=== PATIENT | female | born 1970 | race Caucasian/White ===

== ENCOUNTER 2020-07-20 07:44 | Outpatient (REF) | payer BC, SELFPAY | END 2020-07-20 07:45 | disposition home or self-care (01) | LOC: HO.WFDLDS 07:44 | PROVIDERS: Visit Provider Internal Medicine | DX: Z20.822 Contact with and (suspected) exposure to COVID-19 (principal) | CPT/HCPCS: 36415; C9803; U0003 ==

== ENCOUNTER 2023-12-25 10:31 | Outpatient (AMB) | payer BC, SELFPAY ==
[2023-12-25 10:39] VITALS: BP 144/94; PULSE 65; RESP 15; TEMP 36.9; O2SAT 97; BMI 37.7
--- NOTE | 2023-12-25 10:39 | AM.OFFWIN_ITS ---
Intake Vital Signs 12/25/23 10:39 Height 5 ft 11 in Weight 270 lb 4 oz BMI 37.7 BP 144/94 H Blood Pressure Location Rt brachial Position Sitting Respiration 15 Pulse 65 Pulse Source Pulse Oximeter Temp 98.5 F Temp Source Temporal Artery Scan Pulse Oximetry (%) 97 Oxygen Delivery Method Room Air Intake Visit Reasons: est/ sinus pain Patient Tobacco Use Status: Never used Tobacco [employer] Instructor Required: No Accompanied by: Self / Same As Patient Allergies Seasonal Allergies Allergy (Intermediate, Verified 12/25/23 10:50) sinus pressure Medication List - Last Reconciled 12/25/23 by Makeda Jean, INFORMATION ASSURANCE MANAGER- dupilumab (Dupixent) mg subcut lisinopril 20 mg PO DAILY Do you need a note to return to daycare/school/sports/work: No HPI HPI Comments History of Present Illness Details Here today concern for sinus infection sx present for 3 weeks lots of nasal congestion, mucous, PND, pressure in forehead Home test COVID negative Treated for allergies w/o relief Using other OTC meds w/o relief Awake alert NAD Sclera and conjunctiva clear bilat Nares mucoid d/c bilat , turbinates pale and edematous , + pansinus tenderness with palpation bilat TM intact and clear bilat MMM, pharynx WNL RRR LS CTAB, mild cough noted during exam PFSH Social History Patient Tobacco Use Status: Never used Tobacco Review of Systems Const All systems reviewed & are unremarkable except as noted in HPI and below Physical Exam Vital Signs: Last Vital Signs Temp 98.5 F 12/25/23 10:39 Pulse 65 12/25/23 10:39 Resp 15 12/25/23 10:39 BP 144/94 H 12/25/23 10:39 Pulse Ox 97 12/25/23 10:39 Oxygen Delivery Method Room Air 12/25/23 10:39 BMI result Body Mass Index 37.7 Assessment & Plan Assessment & Plan (1) Acute bacterial sinusitis: Code(s): J01.90 - Acute sinusitis, unspecified; B96.89 - Other specified bacterial agents as the cause of diseases classified elsewhere Plan: . Medications: New amoxicillin-pot clavulanate 875-125 mg 1 tab PO BID 7 days 14 tabs 0RF fluticasone propionate 50 mcg/actuation administer into each nostril 1 spray intranasal BID 16 grams 0RF Patient Instructions: What Is It? Sinuses are air-filled spaces behind the bones of the upper face: between the eyes and behind the forehead, nose and cheeks. The lining of the sinuses are made up of cells with tiny hairs on their surfaces called cilia. Other cells in the lining produce mucus. The mucus traps germs and pollutants and the cilia push the mucus out through narrow sinus openings into the nose. When the sinuses become inflamed or infected, the mucus thickens and clogs the openings to one or more sinuses. Fluid builds up inside the sinuses causing increased pressure. Also bacteria can become trapped, multiply and infect the lining. This is sinusitis. Prevention There are some measures you can take to decrease your risk of developing sinusitis. If you smoke cigarettes, you should quit. The smoke can irritate nasal passageways and increase the likelihood of infection. Nasal allergies can trigger sinus infections, too. By identifying the allergen (the substance causing the allergic reaction) and avoiding it, you can help prevent sinusitis. If you have congestion from a cold or allergies, the following may help to reduce the risk of developing sinusitis: Drink lots of water. This thins nasal secretions and keeps mucous membranes moist. Use steam to soothe nasal passages. Breathe deeply while standing in a hot shower, or inhale the vapor from a basin filled with hot water while holding a towel over your head. Avoid blowing your nose with great force, which can push bacteria into the sinuses. Some doctors advise periodic home nasal washings to clear secretions. This may help prevent, and also treat, sinus infections. Treatment Many sinus infections improve without treatment. However, several medications may speed recovery and reduce the chance that an infection will become chronic. Decongestants - Congestion often triggers sinus infections, and decongestants can open the sinuses and allow them to drain. Several are available: Pseudoephedrine (Sudafed) is available without prescription, alone or in combination with other medications in multi-symptom cold and sinus remedies. Pseudoephedrine can cause insomnia, racing pulse and jitteriness. Do not use if you have high blood pressure or a heart condition. Phenylephrine (such as Sudafed PE) is an alternative auwa-gmn-auywbyo oral decongestant. If you take products containing oral phenylephrine, check with the pharmacist to be certain there is no interaction with other medications you take. Oxymetazoline (Afrin, Dristan and others) and phenylephrine (Timur-Synephrine and others) are found in nasal sprays. They are effective and may be less likely to cause the side effects seen with pseudoephedrine. However, using a nasal decongestant for more than three days can cause worse symptoms when you stop the medication. This is called the rebound effect. Antihistamines - These medications help to relieve the symptoms of nasal allergies that lead to inflammation and infections. However, some doctors advise against using antihistamines during a sinus infection because they can cause excessive drying and slow the drainage process. Pfub-myj-kgaffoq antihistamines include diphenhydramine (Benadryl and others), chlorpheniramine (Chlor-Trimeton and others) and loratadine (Claritin). Fexofenadine (Melina) and cetrizine (Zyrtec) are available by prescription. Nasal steroids - Anti-inflammatory sprays such as mometasone (Nasonex) and fluticasone (Flonase), both available by prescription, reduce swelling of nasal membranes. Like antihistamines, nasal steroids can be most useful for those who have nasal allergies. Nasal steroids tend to produce less drying than antihistamines. Unlike nasal decongestants, nasal steroids can be used for prolonged periods. Saline nasal sprays - These salt-water sprays are safe to use and can provide some relief by adding moisture to the nasal passages, thinning mucus secretions and helping to flush out any bacteria that may be present. Pain relievers - Acetaminophen (Tylenol), ibuprofen (Advil, Motrin and others) or naproxen (Aleve) can be taken sinus pain. Antibiotics - Your doctor may prescribe an antibiotic if he or she suspects that a bacterial infection is causing your sinusitis. If you start taking an antibiotic, complete the entire course so that the infection is completely killed off. Not all cases of sinusitis require antibiotic treatment: Talk with your doctor about whether an antibiotic is right for you. Keep in mind that antibiotics can cause side effects, such as allergic reactions, rash and diarrhea. In addition, overusing antibiotics eventually leads to the spread of bacteria that no longer can be killed by the most commonly prescribed antibiotics. When To Call A Professional Contact a doctor if you experience facial pain along with a headache and fever, cold symptoms that last longer than seven to 10 days, or persistent green discharge from the nose. If your symptoms don't improve within a week of beginning treatment, call your doctor. Call sooner if symptoms are getting worse. If you have repeated bouts of acute sinusitis, you may have allergies or another treatable cause of sinus congestion. Ask your doctor for advice. Coding Level of Care Code Est Pt Level 3 (22936) Diagnoses Acute bacterial sinusitis J01.90; B96.89
== END 2023-12-25 10:59 | disposition home or self-care (01) ==
PROVIDERS: PCP Physician Assistant; Visit Provider Nurse Practitioner Family
DX: J01.90 Acute sinusitis, unspecified (principal); B96.89 Other specified bacterial agents as the cause of diseases classified elsewhere
CPT/HCPCS: 99213

== ENCOUNTER 2024-02-29 09:12 | Outpatient (REF) | payer BC, SELFPAY ==
[2024-02-29 11:32] LABS: MANUAL DIFF FLAG NO
[2024-02-29 12:16] LABS: Basophils Percent Auto 0.4 % (0-2); Eosinophils Absolute Auto 0.3 X10*3/uL (0.0-0.4); Eosinophils Percent Auto 5.9 % (0-4); Hematocrit 41.8 % (37.0-47.0); Hemoglobin 13.9 g/dl (12.0-16.0); Imm Gran Abs Auto 0.02 X10*3/uL (0.00-0.03); Imm Gran Pct Auto 0.4 % (0.0-0.4); Lymphocytes Absolute Auto 1.7 X10*3/uL (1.2-4.9); Lymphocytes Percent Auto 33.8 % (20-40); Mean Corpuscular HGB Conc 33.3 g/dl (31.0-35.0); Mean Corpuscular Hemoglobin 30.1 pg (27.0-33.0); Mean Corpuscular Volume 90.5 fL (80.0-98.0); Mean Platelet Volume 10.6 fL (9.4-12.3); Monocytes Absolute Auto 0.4 X10*3/uL (0.1-1.2); Monocytes Percent Auto 7.7 % (2-11); Neutrophils Absolute Auto 2.6 x10*3/uL (2.0-8.3); Neutrophils Percent Auto 51.8 % (45-73); Platelet Count 249 X10*3/uL (160-400); Red Blood Count 4.62 X10*6/uL (4.20-5.50); Red Cell Distribution Width 13.4 % (11.0-16.0); White Blood Count 5.1 X10*3/uL (4.8-10.8)
[2024-02-29 12:36] LABS: Alanine Aminotransferase 14 U/L (0-31); Albumin Level 4.3 g/dL (3.5-5.0); Alkaline Phosphatase 40 U/L (39-117); Anion Gap 10 (12-20); Aspartate Amino Transferase 16 U/L (5-31); Bilirubin Total 0.7 mg/dL (0.0-1.0); Blood Urea Nitrogen 20 mg/dL (9-16); Calcium 9.7 mg/dL (8.4-10.2); Carbon Dioxide 28 mmol/L (22-29); Chloride 108 mmol/L (96-108); Cholesterol 175 mg/dL (<200); Estimated Glomerular Filt Rate > 60; Glucose Fasting 107 mg/dL (60-99); HDL Cholesterol 54 mg/dL (>40); LDL Cholesterol Calculated 107 mg/dL (<100); Potassium 4.2 mmol/L (3.3-5.1); Sodium 142 mmol/L (135-145); Total Protein 7.1 g/dL (6.5-8.0); Triglycerides 71 mg/dL (<150)
[2024-02-29 12:56] LABS: TSH reflex Free T4 1.64 uIU/mL (0.32-4.0)
[2024-03-04 13:08] LABS: Lyme Abs Screen <0.90 index
== END 2024-02-29 09:13 | disposition home or self-care (01) ==
LOC: HO.WFDLDS 09:12
PROVIDERS: Visit Provider Physician Assistant
DX: R42 Dizziness and giddiness (principal); I10 Essential (primary) hypertension; I49.3 Ventricular premature depolarization; R00.1 Bradycardia, unspecified
CPT/HCPCS: 36415; 80053; 80061; 84443; 85025; 86617; 86618

== ENCOUNTER 2024-02-29 13:08 | Outpatient (AMB) | payer BC, SELFPAY ==
--- NOTE | 2024-02-29 13:19 | MHC.PC.OV ---
Vital Signs 02/29/24 13:24 Height 5 ft 9.45 in Weight 276 lb BMI 40.2 BP 128/76 Blood Pressure Location Rt brachial Position Sitting Respiration 14 Pulse 64 Pulse Source Pulse Oximeter Temp 98.2 F Temp Source Oral Pulse Oximetry (%) 95 Oxygen Delivery Method Room Air Intake Visit Reasons: NPV Intake Note: New patient visit Allergies Seasonal Allergies Allergy (Intermediate, Verified 02/29/24 13:20) sinus pressure Medication List - Last Reconciled 02/29/24 by Cindy Gomez PA-C albuterol sulfate 90 mcg/actuation 2 puffs inhalation Q4-6H PRN dupilumab (Dupixent) mg subcut lisinopril 20 mg PO DAILY Tobacco use date assessed: 02/29/24 Dental Screening Dental Screen Date: 02/29/24 Did you have a dental visit in the last 12 months?: No Did you have a dental problem in the last 6 months where you did not have access to dental care?: No Was dental information given to patient?: Patient has dentist HPI NPV HPI Details Patient is a 53-year-old female who presents today to [facility]. She is transferring from [facility] and was last seen by myself this spring. She has a significant past medical history of hypertension, chronic sinusitis and asthma. -This spring she had complained feeling lightheaded, some chest discomfort and just not good with exertion. She checked her blood pressure and it was elevated. At that time I did start her on lisinopril, ordered labs, chest x-ray, EKG, stress test, Holter and echo. She did have a Holter which did show frequent PVCs with bradycardia. She never completed her echo or stress test. She states that at times she still does just feel off and a little dizzy. She mostly made this appointment because her daughter is worried that something bad could happen to her. She states that she never takes care of herself and does work in a high stress job. CV: BP today in the office is 128/76. She is on lisinopril 20 mg and tolerates this well. PULM: Follows with Allergy and immunology for Dupixent. States that her asthma is very well-controlled over the last 4 years with this medication. She will have maybe 1-2 exacerbations a year. Has not needed to recently use her albuterol. General: States that she does have a hard time falling asleep and staying asleep. She wonders if she could be menopausal. She has a Mirena. Has not had a menses in years. She also has a really hard time losing weight. She states that she just constantly feels hungry and despite making good diet choices she can not lose weight. She has tried everything from fat burner pills bsnr-puu-otikrtp, [place], Atkins, carnivore diet, weight watchers and states that at most she will be able to lose 10 lb or so and then gained it back. She really wants to try Wegovy. Endo: She does appear to have a little insulin resistance. Her fasting blood sugar was 107. She states after she eats she often feels sluggish and tired. No polyuria or polydipsia. 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 How often do you have a drink containing alcohol?: Monthly or less 2. How many drinks containing alcohol do you have on a typical day when you are drinking?: 1 or 2 3. How often do you have six or more drinks on one occasion?: Less than monthly Total Score: 2 Physical exam (Primary Care) Vital Signs: Last Vital Signs Temp 98.2 F 02/29/24 13:24 Pulse 64 02/29/24 13:24 Resp 14 02/29/24 13:24 BP 128/76 02/29/24 13:24 Pulse Ox 95 02/29/24 13:24 Oxygen Delivery Method Room Air 02/29/24 13:24 BMI result Body Mass Index 25.7 Tobacco/Smoking Status: Tobacco use Status Tobacco use date assessed 02/29/24 02/29/24 13:29 Patient Tobacco Use Status Former Tobacco user 02/29/24 13:29 Office Procedures EKG Details: EKG today in the office is sinus bradycardia at a rate of 51 beats per minute with nonspecific T-wave abnormalities. EKG interpreted by myself. Appears to be unchanged from EKG at [facility]. 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 Labs reviewed today. (3) Lightheaded: Code(s): R42 - Dizziness and giddiness Plan: As above. (4) Bradycardia: Code(s): R00.1 - Bradycardia, unspecified Plan: As above. (5) Abnormal EKG: Code(s): R94.31 - Abnormal electrocardiogram [ECG] [EKG] Plan: As above. (6) Insomnia: Code(s): G47.00 - Insomnia, unspecified Qualifiers: Insomnia type: unspecified Qualified Code(s): G47.00 - Insomnia, unspecified Plan: Sleep study ordered. Hormones ordered. Offered trial of trazodone but declines. (7) Severe obesity (BMI 35.0-35.9 with comorbidity): Code(s): E66.01 - Morbid (severe) obesity due to excess calories; Z68.35 - Body mass index [BMI] 35.0-35.9, adult Plan: We will try Wegovy. Discussed risks and benefits and adverse effects such as nausea, vomiting, increased risk of pancreatitis. She has tried and failed numerous diets and exercise programs. I have encouraged her to reduce her carbohydrate intake and to avoid eating after 19:00. Orders: Orders AMB Hemoglobin A1c Today R42 - Dizziness and giddiness XR DEXA axial skeleton Today Z78.0 - Asymptomatic menopausal state CA stress test Today I10 - Essential (primary) hypertension, I49.3 - Ventricular premature depolarization, R00.1 - Bradycardia, unspecified, R42 - Dizziness and giddiness, R94.31 - Abnormal electrocardiogram [ECG] [EKG] MM screening mammo BI Today Z12.31 - Encounter for screening mammogram for malignant neoplasm of breast RT home sleep study Today G47.00 - Insomnia, unspecified, I49.3 - Ventricular premature depolarization, R00.1 - Bradycardia, unspecified, R94.31 - Abnormal electrocardiogram [ECG] [EKG] AMB EKG-In Office Today I49.3 - Ventricular premature depolarization, R00.1 - Bradycardia, unspecified, R42 - Dizziness and giddiness Follicle Stimulating Hormone Today E66.01 - Morbid (severe) obesity due to excess calories, G47.00 - Insomnia, unspecified, N91.2 - Amenorrhea, unspecified, Z68.35 - Body mass index [BMI] 35.0-35.9, adult Testosterone, Free/Total Today E66.01 - Morbid (severe) obesity due to excess calories, G47.00 - Insomnia, unspecified, N91.2 - Amenorrhea, unspecified, Z68.35 - Body mass index [BMI] 35.0-35.9, adult Lutenizing Hormone Today E66.01 - Morbid (severe) obesity due to excess calories, G47.00 - Insomnia, unspecified, N91.2 - Amenorrhea, unspecified, Z68.35 - Body mass index [BMI] 35.0-35.9, adult CA echo transthoracic complete Today I10 - Essential (primary) hypertension, I49.3 - Ventricular premature depolarization, R00.1 - Bradycardia, unspecified, R42 - Dizziness and giddiness, R94.31 - Abnormal electrocardiogram [ECG] [EKG] Estradiol Ultra Sensitive Today E66.01 - Morbid (severe) obesity due to excess calories, G47.00 - Insomnia, unspecified, N91.2 - Amenorrhea, unspecified, Z68.35 - Body mass index [BMI] 35.0-35.9, adult Medications: New semaglutide (weight loss) (Valeriy) administer weeks 1 through 4 of therapy 0.25 mg (0.5 mL) subcut QWEEK 2 mL 0RF Coding Level of Care Code Est Pt Level 4 (16377) Complex EM visit Add On G2211 Diagnoses Primary hypertension I10 Hypertension type: primary hypertension Frequent PVCs I49.3 Lightheaded R42 Bradycardia R00.1 Abnormal EKG R94.31 Insomnia, unspecified type G47.00 Insomnia type: unspecified Severe obesity (BMI 35.0-35.9 with comorbidity) E66.01; Z68.35 CPT Codes EKG - CPT: [id number], Complete ([id number])
[2024-02-29 13:24] VITALS: BP 128/76; PULSE 64; RESP 14; TEMP 36.8; O2SAT 95; BMI 40.2
== END 2024-02-29 14:33 | disposition home or self-care (01) ==
PROVIDERS: PCP Physician Assistant; Visit Provider Physician Assistant
DX: I10 Essential (primary) hypertension (principal); I49.3 Ventricular premature depolarization; E66.01 Morbid (severe) obesity due to excess calories; Z68.35 Body mass index [BMI] 35.0-35.9, adult; R42 Dizziness and giddiness; R94.31 Abnormal electrocardiogram [ECG] [EKG]; G47.00 Insomnia, unspecified
CPT/HCPCS: 83036; 93000; 99214

== ENCOUNTER 2024-04-05 12:33 | Outpatient (REF) | payer BC, SELFPAY ==
--- NOTE | ~2024-04-05 | MM_ITS ---
EXAMINATION: MM SCREENING DIGITAL BREAST TOMOSYNTHESIS, BILATERAL CLINICAL INFORMATION: Screening. Asymptomatic. COMPARISON: Mammography: No priors available for comparison. TECHNIQUE: Digital breast mammography with tomosynthesis is performed in both the craniocaudal and mediolateral oblique views along with computer-aided detection (CAD). FINDINGS: There are scattered areas of fibroglandular density (ACR BI-RADS breast composition Category b). There are no significant masses, abnormal calcifications, or other abnormalities. MM/MM tomosynthesis screening BI IMPRESSION: No mammographic evidence of malignancy. ASSESSMENT: BI-RADS BI-RADS 1 - Negative RECOMMENDATION: Routine annual mammography screening. 1 year F/U This examination should not preclude the clinical evaluation of a suspicious palpable abnormality. This patient's information was entered into a reminder system with a target due date for their next mammogram. Electronically signed by: Ashlee Salas DO 04/22/2024 12:42 PM EDT
--- NOTE | ~2024-04-05 | MM_ITS ---
EXAMINATION: BONE DENSITOMETRY CLINICAL INDICATION: Asymptomatic menopausal state. COMPARISON: This is the patient's baseline examination. TECHNIQUE: Using a Entelo DXA System (software version: 13.1) manufactured by [employer], dual-energy x-ray absorptiometry was performed of the lumbar spine and left hip. The images are of good technical quality. Summary results are attached. FINDINGS: AP SPINE L1-L4: BMD 1.418 g/cm2, Z-score 1.5, T-score 2.0, normal. LEFT FEMUR, NECK: BMD 1.128 g/cm2, Z-score 0.8, T-score 0.6, normal. LEFT FEMUR, TOTAL: BMD 1.136 g/cm2, Z-score 0.8, T-score 1.0, normal. IDENTIFIED RISK FACTORS: None listed. HISTORY OF FRACTURE: None listed. MEDICATIONS: Vitamin D. MM/XR DEXA axial skeleton IMPRESSION: 1. DIAGNOSIS: Normal bone density based on the lowest T-score value of 0.6 in the femoral neck applying World Health Organization criteria. 2. 10-YEAR FRACTURE RISK PREDICTION, FRAX: According to the guidelines, FRAX calculation should only be performed on patients in the osteopenia bone density category. Therefore, FRAX was not performed on this patient. 3. Treatment Recommendations: NOF guidelines recommend consideration for treatment in postmenopausal women and men age 50 and older presenting with the following: -A hip or vertebral (clinical or morphometric) fracture. -T-score less than or equal to -2.5 at the femoral neck or spine after appropriate evaluation to exclude secondary causes. -Low bone mass at the hip or spine and a 10-year fracture probability by FRAX of greater than or equal to 3% for hip fracture or greater than or equal to 20% for major osteoporotic fracture based on the [place] adapted WHO algorithm. 4. Other Recommendations: All treatment decisions require clinical judgment and consideration of individual patient factors, including patient preferences, comorbidities, previous drug use, risk factors not captured in the FRAX model (e.g. frailty, falls, vitamin D deficiency, increased bone turnover, interval significant decline in bone density) and possible under or overestimation of fracture risk by FRAX. FUTURE SCAN RECOMMENDATION: People with diagnosed cases of osteoporosis or at high risk for fracture should have regular bone mineral density tests. For patients eligible for Medicare, routine testing is allowed once every 2 years. The testing frequency can be increased to one year for patients who have rapidly progressing disease, those who are receiving or discontinuing medical therapy to restore bone mass, or have additional risk factors. Electronically signed by: Thor Cruz MD 04/16/2024 01:22 PM EDT
== END 2024-04-05 12:34 | disposition home or self-care (01) ==
LOC: HO.MAMMO 12:33
PROVIDERS: PCP Physician Assistant; Visit Provider Physician Assistant
DX: Z12.31 Encounter for screening mammogram for malignant neoplasm of breast (principal); Z13.820 Encounter for screening for osteoporosis; Z78.0 Asymptomatic menopausal state
CPT/HCPCS: 77063; 77067; 77080

== ENCOUNTER → 2024-04-05 12:45 | Outpatient (BNV) | payer BC, SELFPAY | PROVIDERS: PCP Physician Assistant; Visit Provider Internal Medicine | DX: Z12.31 Encounter for screening mammogram for malignant neoplasm of breast (principal) | CPT/HCPCS: 77063; 77067 ==

== ENCOUNTER → 2024-04-08 08:09 | Outpatient (REF) | payer BC, SELFPAY ==
--- NOTE | 2024-04-08 08:12 | CA_ITS ---
Transthoracic Echocardiogram Patient (Last, First, Middle): Opal Zelaya, Gender: Female Date of : 1970 Age: 53 Procedure Date: 04/08/2024 Procedure Type: Transthoracic Echocardiogram Location: OP Height: 177.8 cm Weight: 124.29 kg BSA: 2.39 m2 Heart Rate: bpm BP: 120 / 76 mmHg Welding Engineer: CHADD Referring MD: Cindy Gomez PA-C Symptoms: I49.3 - Ventricular premature depolarization Study Quality: Adequate ECG Rhythm: Sinus Conclusions: - The left ventricular systolic function is normal. The visually estimated ejection fraction is between 55-60%. - No obvious valvular pathology seen on this study. - There is mild dilatation of the ascending aorta measuring 4.30 cm. Findings Left Ventricle Normal left ventricular cavity size. The left ventricular systolic function is normal. The visually estimated ejection fraction is between 55-60%. There is no evidence of regional wall motion abnormalities. Evidence suggests grade I (mild) diastolic dysfunction. There is mild septal asymmetric hypertrophy. Right Ventricle Normal right ventricular cavity size and systolic function. Atria Both atria are normal in size. Aortic Valve There is a normal trileaflet aortic valve. There is no aortic valve stenosis. There is no aortic valve regurgitation. Mitral Valve The mitral valve appears normal. There is mild mitral annular calcification. There is trace mitral valve regurgitation. There is no mitral valve stenosis. Pulmonic Valve The pulmonic valve is likely normal. Tricuspid Valve There is trace tricuspid valve regurgitation. There is no evidence of pulmonary hypertension. Great Vessels There is mild dilatation of the ascending aorta measuring 4.30 cm. Venous The inferior vena cava is mildly dilated and collapses greater than 50% with inspiration. Pericardium/Pleural There is no evidence of pericardial effusion. Prior Study Comparison No prior study available for comparison. Recommendations, Care & Conclusions No obvious valvular pathology seen on this study. Measurements 2D Linear Measurements IVSd: 1.11 0.6-0.9/0.6-1.0 cm LVIDd: 6.06 3.9-5.3/4.2-5.9 cm LVIDd Index: 2.54 2.4-3.2/2.2-3.1 cm/m2 LVIDs: 3.66 2.0-3.6 cm LVPWd: 0.87 0.7-1.1 cm LA Diam: 4.50 2.7-3.8/3.0-4.0 cm LAIDs Index: 1.88 1.5-2.3 cm/m2 LV Mass: 309.46 67-162/88-224 g LV Mass Index: 129.48 43-95/49-115 g/m2 LVOT Diam: 2.20 3.0+(-)1.3 cm 2D Systolic Function EF 4C: 62.40 >55% EF 2C: 67.70 >55% EF BiP: 66.30 >55% Mitral Valve MV Pk E: 0.72 MV PK A: 0.94 MV Decel Time: 377.00 E/A: 0.80 E'Lateral: 5.11 E'Medial: 4.79 E/E' Med: 14.90 E/E' Lat: 14.00 PHT: 110.00 MVA PHT: 2.00 Decel [place]: 1.90 Aortic Valve AoV Pk Claudio: 1.71 AoV Mn Claudio: 1.15 AoV VTI: 0.45 AoV Pk Grad: 12.00 Aov Mn Grad: 6.00 RAFAEL Cont.VTI: 2.47 LVOT LVOT Pk Claudio: 1.04 LVOT Mn Claudio: 0.68 LVOT VTI: 0.29 LVOT Pk Grad: 4.00 LVOT Mn Grad: 2.00 LVOT Diam: 2.20 LVOT Area: 3.80 Diastolic Function MV Pk E: 0.72 MV Pk A: 0.94 E/A: 0.80 E'Medial: 4.79 E/E' Med: 14.90 E' Laterial: 5.11 E/E' Lat: 14.00 Right Ventricle TAPSE (mm): 31.10 TVS' Claudio: 13.30 Tricuspid Valve RA Press: 8.00 Great Vessels Aorta Sinus of Valsalva: 3.77 2.0-3.[address] [place]: 3.36 1.7-3.4 cm Ao Asc: 4.30 2.1-3.4 cm Updated in Other Vendor System with Status of Final Artemio Coleman MD electronically signed on 04/08/2024 11:07:04 AM with status of Final
--- NOTE | 2024-04-08 08:12 | CA_ITS ---
Acquisition Time: 2024-04-08 08:47:16 Total Exercise Time: 00:06:20 Test Indications: Abnormal ECG Medications: ALBUTEROL LISINOPRIL DUPIXENT Protocol: GREG Max HR: 150 BPM 89% of Pred: 167 BPM Max BP: 210/100 mmHG Max Work Load: 7.5 METS Exercise stress test exercise 6 min 20 sec of Greg protocol achieving 88% MPHR, with mild to moderate SOB, no chest discomfort, with vencitular bigeminy, isolated PVCs, and venticular triplet with hypertensive response to exercise - max BP 210/100, without EKG changes. Breathing and blood pressure returned to baseline= with rest. Test reviewed with Dr. Pollard Referred By: Cindy Gomez Overread By: Liliya Massey
== END ==
LOC: HO.CARD 08:09
PROVIDERS: PCP Physician Assistant; Visit Provider Physician Assistant
DX: I49.3 Ventricular premature depolarization (principal); R42 Dizziness and giddiness; I10 Essential (primary) hypertension; R00.1 Bradycardia, unspecified; R94.31 Abnormal electrocardiogram [ECG] [EKG]
CPT/HCPCS: 93017; 93306

== ENCOUNTER → 2024-04-08 08:12 | Outpatient (BNV) | payer BC, SELFPAY | PROVIDERS: PCP Physician Assistant; Visit Provider Internal Medicine | DX: I42.2 Other hypertrophic cardiomyopathy (principal); I51.89 Other ill-defined heart diseases; I34.81 Nonrheumatic mitral (valve) annulus calcification; I77.810 Thoracic aortic ectasia; R06.02 Shortness of breath; I49.3 Ventricular premature depolarization | CPT/HCPCS: 93016; 93018; 93350 ==

== ENCOUNTER → 2024-04-23 08:08 | Outpatient (REF) | payer BC, SELFPAY | LOC: HO.SL 08:08 | PROVIDERS: PCP Physician Assistant; Visit Provider Physician Assistant | DX: I49.3 Ventricular premature depolarization (principal); R00.1 Bradycardia, unspecified; R94.31 Abnormal electrocardiogram [ECG] [EKG]; G47.00 Insomnia, unspecified; I10 Essential (primary) hypertension; R42 Dizziness and giddiness; G47.10 Hypersomnia, unspecified | CPT/HCPCS: 95806 ==

== ENCOUNTER → 2024-04-23 08:18 | Outpatient (BNV) | payer BC, SELFPAY | PROVIDERS: PCP Physician Assistant; Visit Provider Internal Medicine | DX: R06.83 Snoring (principal); G47.10 Hypersomnia, unspecified | CPT/HCPCS: 95806 ==

== ENCOUNTER 2024-05-30 08:49 | Outpatient (AMB) | payer BC, SELFPAY ==
--- NOTE | 2024-05-30 08:54 | A.OFFVIS_ITS ---
Vital Signs 05/30/24 08:56 Height 5 ft 11 in Weight 263 lb BMI 36.7 BP 128/82 Blood Pressure Location Lt brachial Position Sitting Intake Visit Reasons: f/u Allergies Seasonal Allergies Allergy (Intermediate, Verified 02/29/24 13:20) sinus pressure HPI HPI f/u: Details: Patient is a 53-year-old female who presents today for a follow up. She has a significant past medical history of hypertension, chronic sinusitis and asthma and eczema. CV: BP today in the office is 128/82. She is on lisinopril 20 mg and tolerates this well. PULM: Follows with Allergy and immunology for Dupixent. States that her asthma is very well-controlled over the last 4 years with this medication. She will have maybe 1-2 exacerbations a year. Has not needed to recently use her albuterol. General: States that she is tired since starting Wegovy and wonders if this is a side if she could be menopausal. She has a Mirena. Has not had a menses in years. Endo: She does appear to have a little insulin resistance. Her fasting blood sugar was 107. She states after she eats she often feels sluggish and tired. No polyuria or polydipsia. 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 Current occupational exposures/hazards: No Cognitive needs: No Hearing needs: No Vision needs: No Physical Exam Const Orientation/consciousness: patient oriented x3 HEENT Ears: hearing grossly normal bilaterally Neck Thyroid: Thyroid normal Lymphatic: no lymphadenopathy noted Resp Auscultation: clear to auscultation bilaterally Cardio Rate: regular rate Rhythm: regular rhythm Heart sounds: S1 normal heart sound present and S2 normal heart sound present GI Inspection: Yes normal to inspection Palpation (GI): Soft to palpation and Other GI palpation findings present (nontender, no cva tenderness) Auscultation: normoactive bowel sounds Rectal Exam - Female: deferred Skin General skin exam: no rashes or lesions noted Neuro General: patient oriented x3, gait normal and no focal motor deficits Assessment & Plan Assessment & Plan (1) HTN (hypertension): Code(s): I10 - Essential (primary) hypertension Category: Medical Qualifiers: Hypertension type: primary hypertension Qualified Code(s): I10 - Essential (primary) hypertension Plan: Continue current regimen. Continuing to lose weight with diet and Wegovy. (2) Fatigue: Code(s): R53.83 - Other fatigue Category: Medical Plan: Labs ordered today. We will follow up pending test results. (3) Severe obesity (BMI 35.0-35.9 with comorbidity): Code(s): E66.01 - Morbid (severe) obesity due to excess calories; Z68.35 - Body mass index [BMI] 35.0-35.9, adult Category: Medical Plan: She has lost about 15 lb so far. Orders: Orders Comprehensive [place]. Panel Fast Today I10 - Essential (primary) hypertension, R53.83 - Other fatigue IRON PROFILE Today I10 - Essential (primary) hypertension, R53.83 - Other fatigue Vitamin B1 Today E66.01 - Morbid (severe) obesity due to excess calories, R53.83 - Other fatigue, Z68.35 - Body mass index [BMI] 35.0-35.9, adult Complete Blood Count Auto Diff Today I10 - Essential (primary) hypertension, R53.83 - Other fatigue TSH reflex Free T4 Today I10 - Essential (primary) hypertension, R53.83 - Other fatigue Vitamin B12 and Folate Today I10 - Essential (primary) hypertension, R53.83 - Other fatigue Vitamin A Today E66.01 - Morbid (severe) obesity due to excess calories, R53.83 - Other fatigue, Z68.35 - Body mass index [BMI] 35.0-35.9, adult Zinc Today E66.01 - Morbid (severe) obesity due to excess calories, R53.83 - Other fatigue, Z68.35 - Body mass index [BMI] 35.0-35.9, adult Medications: New hydroxyzine HCl 25 mg PO TID PRN 30 tabs 1RF itching Coding Level of Care Code Est Pt Level 4 (92430) Complex EM visit Add On G2211 Diagnoses Primary hypertension I10 Hypertension type: primary hypertension Fatigue R53.83 Severe obesity (BMI 35.0-35.9 with comorbidity) E66.01; Z68.35
[2024-05-30 08:56] VITALS: BP 128/82; BMI 36.7
== END 2024-05-30 09:33 | disposition home or self-care (01) ==
PROVIDERS: PCP Physician Assistant; Visit Provider Physician Assistant
DX: I10 Essential (primary) hypertension (principal); R53.83 Other fatigue; E66.01 Morbid (severe) obesity due to excess calories; Z68.35 Body mass index [BMI] 35.0-35.9, adult

== ENCOUNTER 2024-05-30 09:40 | Outpatient (REF) | payer BC, SELFPAY ==
[2024-05-30 11:11] LABS: MANUAL DIFF FLAG NO
[2024-05-30 11:26] LABS: Basophils Percent Auto 0.4 % (0-2); Eosinophils Absolute Auto 0.3 X10*3/uL (0.0-0.4); Eosinophils Percent Auto 5.8 % (0-4); Hematocrit 37.7 % (37.0-47.0); Imm Gran Abs Auto 0.01 X10*3/uL (0.00-0.03); Imm Gran Pct Auto 0.2 % (0.0-0.4); Lymphocytes Absolute Auto 1.2 X10*3/uL (1.2-4.9); Lymphocytes Percent Auto 26.2 % (20-40); Mean Corpuscular HGB Conc 34.5 g/dl (31.0-35.0); Mean Corpuscular Hemoglobin 29.2 pg (27.0-33.0); Mean Corpuscular Volume 84.7 fL (80.0-98.0); Mean Platelet Volume 10.9 fL (9.4-12.3); Monocytes Absolute Auto 0.3 X10*3/uL (0.1-1.2); Neutrophils Absolute Auto 2.9 x10*3/uL (2.0-8.3); Neutrophils Percent Auto 61.4 % (45-73); Platelet Count 261 X10*3/uL (160-400); Red Blood Count 4.45 X10*6/uL (4.20-5.50); Red Cell Distribution Width 13.9 % (11.0-16.0); White Blood Count 4.7 X10*3/uL (4.8-10.8)
[2024-05-30 11:42] LABS: Alanine Aminotransferase 16 U/L (0-31); Albumin Level 4.3 g/dL (3.5-5.0); Alkaline Phosphatase 36 U/L (39-117); Anion Gap 11 (12-20); Aspartate Amino Transferase 15 U/L (5-31); Bilirubin Total 0.7 mg/dL (0.0-1.0); Blood Urea Nitrogen 20 mg/dL (9-16); Calcium 9.8 mg/dL (8.4-10.2); Carbon Dioxide 24 mmol/L (22-29); Chloride 109 mmol/L (96-108); Estimated Glomerular Filt Rate > 60; Glucose Fasting 106 mg/dL (60-99); Iron 89 mcg/dL (30-160); Percent Iron Saturation 37 % (15-50); Sodium 140 mmol/L (135-145); Total Iron Binding Capacity 239 mcg/dL (228-428); Total Protein 6.9 g/dL (6.5-8.0); Unsaturated Iron Binding 150 ug/dL
[2024-05-30 12:00] LABS: TSH reflex Free T4 1.25 uIU/mL (0.32-4.0)
[2024-05-30 12:09] LABS: Folate 7.5 ng/mL (> or = 4.0); Vitamin B12 443 pg/mL (200-900)
[2024-06-01 09:34] LABS: Follicle Stimulating Hormone 36.2 mIU/mL
[2024-06-05 16:02] LABS: Vitamin B1 15 nmol/L (8-30)
[2024-06-06 06:38] LABS: Vitamin A 53 mcg/dL (38-98)
[2024-06-08 21:19] LABS: Testosterone, Free 2.9 pg/mL (0.1-6.4); Testosterone, Total 25 ng/dL (2-45)
[2024-06-10 23:43] LABS: Estradiol Ultra Sensitive 144 pg/mL
== END 2024-05-30 09:41 | disposition home or self-care (01) ==
LOC: HO.WFDLDS 09:40
PROVIDERS: Visit Provider Physician Assistant
DX: E66.01 Morbid (severe) obesity due to excess calories (principal); Z68.35 Body mass index [BMI] 35.0-35.9, adult; G47.00 Insomnia, unspecified; N91.2 Amenorrhea, unspecified; I10 Essential (primary) hypertension; R53.83 Other fatigue
CPT/HCPCS: 36415; 80053; 82607; 82670; 82746; 83001; 83002; 83540; 84402; 84403; 84425; 84443; 84590; 85025

== ENCOUNTER 2025-05-09 08:41 | Outpatient (REF) | payer BC, SELFPAY ==
--- NOTE | ~2025-05-09 | MM_ITS ---
EXAMINATION: MM SCREENING DIGITAL BREAST TOMOSYNTHESIS, BILATERAL CLINICAL INFORMATION: Screening. Asymptomatic. COMPARISON: April 05, 2024 TECHNIQUE: Digital breast tomosynthesis is performed in mediolateral oblique and craniocaudal views along with computer-aided detection (CAD). Synthesized 2D images are generated from the tomosynthesis. FINDINGS: BREAST COMPOSITION: There are scattered areas of fibroglandular density. BILATERAL BREASTS: No significant masses, suspicious calcifications or other abnormalities are seen in either breast. MM/MM tomosynthesis screening BI IMPRESSION: BILATERAL BREASTS: Negative, no mammographic evidence of malignancy. Normal interval follow-up is recommended in 12 months. ASSESSMENT: BI-RADS: Category 1: Negative RECOMMENDATION: Routine annual mammography screening. FOLLOW-UP: 1 year F/U This examination should not preclude the clinical evaluation of a suspicious palpable abnormality. This patient's information was entered into a reminder system with a target due date for their next mammogram. Electronically signed by: Neil Tyson MD 05/11/2025 12:37 PM [facility]
== END 2025-05-09 08:42 | disposition home or self-care (01) ==
LOC: HO.MAMMO 08:41
PROVIDERS: PCP Physician Assistant; Visit Provider Physician Assistant
DX: Z12.31 Encounter for screening mammogram for malignant neoplasm of breast (principal)
CPT/HCPCS: 77063; 77067

== ENCOUNTER → 2025-05-09 08:45 | Outpatient (BNV) | payer BC, SELFPAY | PROVIDERS: PCP Physician Assistant; Visit Provider Radiology Body Imaging | DX: Z12.31 Encounter for screening mammogram for malignant neoplasm of breast (principal) | CPT/HCPCS: 77063; 77067 ==